=== PATIENT | female | born 2000 | race Caucasian/White ===

== ENCOUNTER → 2024-08-03 | Outpatient (CLI) | payer OTHER, SELFPAY ==
[2024-08-03 10:49] LABS: Hematocrit 40.8 % (37-47); Hemoglobin 13.7 g/dL (12.0-15.0); Mean Corp Hgb Conc 33.6 g/dL (32-36); Mean Corpuscular Hgb 27.8 pg (27.0-32.0); Mean Corpuscular Volume 82.8 fL (81-99); Mean Platelet Vol. 8.7 fl (6.2-12.0); Platelet Count 292 K/mm3 (150-450); RBC Distribution Width CV 12.2 % (11.6-14.6); RBC Distribution Width SD 36.9 fl (35.1-43.9); Red Blood Count 4.93 M/mm3 (4.2-5.4); White Blood Count 8.3 K/mm3 (4.4-11.0)
[2024-08-03 11:04] LABS: Anion Gap 4 (5-15); BUN 5 mg/dL (7-18); BUN/Creat Ratio 8.7 RATIO (10-20); Calcium,Total 9.6 mg/dL (8.5-10.1); Chloride 106 mmol/L (98-107); Creatinine, Serum 0.58 mg/dL (0.55-1.02); EST Glomerular Filtration Rate 137 mL/min (>60); Est Glom Filt Rate - Afr Amer 165 mL/min (>60); Glucose 97 mg/dL (74-106); Potassium 4.5 mmol/L (3.5-5.1); Sodium Level 137 mmol/L (136-145)
== END | disposition home or self-care (01) ==
PROVIDERS: Referring Provider Plastic Surgery; Visit Provider Plastic Surgery
DX: L30.4 Erythema intertrigo (principal); M54.9 Dorsalgia, unspecified; G89.29 Other chronic pain; M25.519 Pain in unspecified shoulder; M54.2 Cervicalgia; N62 Hypertrophy of breast
CPT/HCPCS: 36415; 80048; 85027

== ENCOUNTER → 2024-08-11 | Outpatient (CLI) | payer OTHER, SELFPAY ==
[2024-08-11 12:19] LABS: Absolute Lymphocyte Count 1.69 X10^3/uL (0.83-4.51); Absolute Neutrophil Count 3.6 X10^3/uL (2.0-7.7); Basophil# 0.03 X10^3/uL; Basophil% 0.5 % (0-1); Eosinophil# 0.15 X10^3/uL; Eosinophils% 2.5 % (0-5); Hematocrit 37.6 % (37-47); Hemoglobin 12.8 g/dL (12.0-15.0); Lymphocyte # 1.69 X10^3/ul (0.83-4.51); Lymphocyte % 27.8 % (19-41); Mean Corpuscular Hgb 28.1 pg (27.0-32.0); Mean Corpuscular Volume 82.5 fL (81-99); Mean Platelet Vol. 8.9 fl (6.2-12.0); Monocyte# 0.64 X10^3/uL; Monocyte% 10.5 % (0-10); NRBC Flagged by Analyzer 0 % (0-5); Neutrophil # 3.56 X10^3/uL (2.7-7.7); Neutrophil % 58.4 % (47-70); Platelet Count 334 K/mm3 (150-450); RBC Distribution Width CV 12.1 % (11.6-14.6); RBC Distribution Width SD 36.6 fl (35.1-43.9); Red Blood Count 4.56 M/mm3 (4.2-5.4); White Blood Count 6.1 K/mm3 (4.4-11.0)
[2024-08-11 12:31] LABS: AST(SGOT) 22 U/L (15-37); Alanine Aminotransfer ALT/SGPT 27 U/L (13-56); Alkaline Phosphatase 35 U/L (45-117); Anion Gap 5 (5-15); BUN 8 mg/dL (7-18); BUN/Creat Ratio 13.2 RATIO (10-20); Calcium,Total 9.4 mg/dL (8.5-10.1); Chloride 107 mmol/L (98-107); Creatinine, Serum 0.61 mg/dL (0.55-1.02); EST Glomerular Filtration Rate 129 mL/min (>60); Est Glom Filt Rate - Afr Amer 156 mL/min (>60); Globulin 4.2 g/dL (2.2-4.2); Glucose 90 mg/dL (74-106); Potassium 3.9 mmol/L (3.5-5.1); Protein, Total 8.2 g/dL (6.4-8.2); Sodium Level 137 mmol/L (136-145)
== END | disposition home or self-care (01) ==
LOC: VSLAB 09:18
PROVIDERS: PCP Family Medicine; Visit Provider Family Medicine
DX: Z01.812 Encounter for preprocedural laboratory examination (principal)
CPT/HCPCS: 36415; 80053; 85025

== ENCOUNTER 2024-09-02 06:00 | Day surgery (SDC) | payer OTHER, SELFPAY ==
[2024-09-02] VITALS (11 sets, daily range): BP systolic 107–121; BP diastolic 60–79; PULSE 70–101; RESP 16–18; TEMP 36.4–37.2; O2SAT 97–99; BMI 27.9
[2024-09-02 06:33] LABS: Internal QC Validated? YES +Cl - CLEAR BKGD; Pregnancy, Urine Negative Negative
[2024-09-02] MEDS: 0.9% Normal Saline (1000mL) 1,000 ML 15 ML IV (06:34)
--- NOTE | 2024-09-02 06:36 | PCM.PRE.AN2 ---
ASA Classification* ASA Classification ASA Classification: 2 Assessment & Plan Anesthesia* Anesthesia Assessment Anesthesia Assessment: Discussed sedation and/or anesthesia options, risks, benefits, and alternatives with patient/parents/legal guardian/POA. Questions invited. The patient/parents/legal guardian/POA seems to understand and agrees to proceed with anesthesia plan. Reviewed the physical assessment, medical history, allergy history and patient home medications list prior to surgery/procedure/anesthetic and documented any changes. Performed airway and anesthesia risk assessments. Anesthesia Type Anesthesia Type: General Anesthesia Focused Assessment* Temperature: 97.5 F Pulse Rate: 70 Blood Pressure: 117/79 Respiratory Rate: 16 Pulse Ox: 99 Airway Assessment Mouth opens: >3 cm Mallampati Score: II Focused Labs Anesthesia Preop lab: CBC WBC 6.1 K/mm3 (4.4-11.0) 08/11/24 09:18 RBC 4.56 M/mm3 (4.2-5.4) 08/11/24 09:18 Hgb 12.8 g/dL (12.0-15.0) 08/11/24 09:18 Hct 37.6 % (37-47) 08/11/24 09:18 Plt Count 334 K/mm3 (150-450) 08/11/24 09:18 CHEMISTRY Potassium 3.9 mmol/L (3.5-5.1) 08/11/24 09:18 Sodium 137 mmol/L (136-145) 08/11/24 09:18 BUN 8 mg/dL (7-18) 08/11/24 09:18 Creatinine 0.61 mg/dL (0.55-1.02) 08/11/24 09:18 Glucose 90 mg/dL (74-106) 08/11/24 09:18 COAG Urine Test Negative Negative 09/02/24 06:15 Pre-Assessment Diagnosis/Proposed Procedure Planned Operative Procedure(s): BILAT BREAST REDUCTION Anesthesia History Anesthesia History - cullet crusher: Anesthesia History - cullet crusher Hx Hospitalization No 08/20/24 09:30 Any Problems With Anesthesia No 08/20/24 09:30 Cholinesterase deficiency No 08/20/24 09:30 You/Your Family Experience No 08/20/24 09:30 fever (hyperthermia) with Relationship Recent Exposure to Contagious No 09/02/24 06:27 Disease Does patient have nerve No 08/20/24 09:30 stimulator Patient instructed to have device shut off --Does patient have Pacemaker No 09/02/24 06:27 or ICD? When Was Last Pacemaker Check QUESTION #4 FULL TEXT: You/Your Family Experience fever (hyperthermia) with Anesthesia Last Oral Intake Last Oral intake: Last Oral Intake NPO since 00:00 09/02/24 06:27 Meds taken in AM with sips of water? Meds patient instructed to take am of surgery PONV PONV - cullet crusher: PONV - cullet crusher Female Yes 08/20/24 09:30 HX of Motion Sickness No 08/20/24 09:30 HX of N/V After Surgery No 08/20/24 09:30 Non-Smoker Yes 08/20/24 09:30 Duration of Surgery greater Yes 08/20/24 09:30 than 60 minutes Number of Risk Factors 3 08/20/24 09:30 PONV Score Moderate Risk 08/20/24 09:30 Height & Weight Height & Weight: Anesthesia: Height & Weight Height 5 ft 8 in 09/02/24 06:27 Weight: 83.461 kg 09/02/24 06:27 Body Mass Index (BMI) 27.9 09/02/24 06:27 Respiratory Assessment Respiratory Assessment - cullet crusher: Respiratory Tract Infection Hx - cullet crusher Hx Respiratory Tract Infection No 08/20/24 09:30 STOP Sleep Apnea STOP Sleep Apnea - cullet crusher: STOP Sleep Apnea - cullet crusher Hx Hypertension No 08/20/24 09:30 Hx Sleep Apnea No 08/20/24 09:30 CPAP BIPAP Do you snore loudly (louder No 08/20/24 09:30 than talking or can be heard Do you often feel tired/ No 08/20/24 09:30 fatigued/ sleepy during daytime? Has anyone observed you stop No 08/20/24 09:30 breathing during sleep? STOP Results Negative 08/20/24 09:30 QUESTION #5 FULL TEXT : Do you snore loudly (louder than talking or can be heard through closed doors)? Tobacco Use History Tobacco Use History - cullet crusher: Tobacco Use History - cullet crusher Tobacco Use Smoking Status Never smoker 08/20/24 09:30 Hx Tobacco Use No 08/20/24 09:30 Years Smoking Packs Smoked per Day Smoking Cessation Date was within the last 15 years Hx Smoking Cessation Date Hx Smoking Cessation Counseling Hematologic Medial History Hematologic Hx - cullet crusher: Hematologic Medical Hx - sports health [employer] membership advisors Hx of Blood Transfusion No 08/20/24 09:30 Hx of Transfusion in last 3 No 08/20/24 09:30 Months Date of Last Transfusion (if within last 3 months) Ever experience any problems No 08/20/24 09:30 with transfusion(s)? Specify any problems Hx of Preganancy in last 3 No 08/20/24 09:30 Months Nurse Filling Out Transfusion DSCHRIBER 08/20/24 09:30 & Questions: Date: 08/20/24 08/20/24 09:30 Time: 09:32 08/20/24 09:30 Patient unable to answer at this time (ie. confused, unrespo /Reproduction History /Reproductive History - cullet crusher: /Reproductive Hx- cullet crusher Hx Now No 08/20/24 09:30 Gestational Age (in weeks): EDC: Hx Hx Para Hx Section SAB No 08/20/24 09:30 Active Medications Active Medications: Current Medications Generic Name Dose Route Start Last Admin Trade Name Freq PRN Reason Stop Dose Admin Cefazolin Sodium 2 gm/ N/A 20 mls @ 400 mls/hr 09/02/24 07:30 IV 09/02/24 07:32 PREOP ONE Sodium Chloride 1,000 mls @ 15 mls/hr 09/02/24 06:15 09/02/24 06:34 IV 09/07/24 19:34 15 mls/hr .Q48H IVELISSE Administration Protocol [facility] Medical History Wears glasses Alcohol use Low iron Back pain Blackout Constipation Non-smoker Severe headache Home Medications ?Medication ?Instructions ?Recorded ?Last Taken ?Type riboflavin (vitamin B2) 50 mg 50 mg PO DAILY 08/20/24 Unknown History tablet vitamin B complex 1 cap PO DAILY 08/20/24 Unknown History zinc gluconate 50 mg tablet 50 mg PO DAILY 08/20/24 Unknown History Allergy/AdvReac Type Severity Reaction Status Date / Time No Known Allergies Allergy Verified 09/02/24 06:26 Family History Grandfather Cancer Myocardial infarction Social History Smoking Status: Never smoker alcohol intake: current details: rarely on special occasions substance use type: does not use additional social history: no vaping, no edibles, no asa or ibuprofen Review of Systems (Anesthesia) ROS Narrative System reviewed and no additional complaints, except as documented.
--- NOTE | 2024-09-02 07:28 | PCM.HP.BLA ---
History and Physical Date of Admission: 09/02/24 The patient is examined and there are no changes to the H&P dated 08/11/24. Pt for bilateral breast reduction. She is marked in the pre-op area. Informed consent obtained for bilateral breast reduction. Assessment & Plan Assessment/Plan (1) Chronic back pain: (2) Chronic shoulder pain: (3) Intertrigo: PLAN: Plan Pt for bilateral breast reduction.
[2024-09-02] MEDS: Cefazolin 2 GM in Syringe IV (07:29)
--- NOTE | 2024-09-02 07:30 | BR_PTH ---
PATIENT: RUBÉN RAMOS LOC: [facility] [place] U#:[id number] AGE/SX: 23/F ROOM: RE09/02/[address]: Dr. Krissy Woodruff MD : 2000 BED: DIS: 09/02/2024 SPEC #: [id number] RECD: 09/02/24 13:29 STATUS: LALI ELLIOTT #: [id number] ELICEO: 09/02/24 07:[address]: Krissy Woodruff DEPT: SURGICAL PATHOLOGY RECD BY: Jyothi Carlisle ENTERED: 09/03/24 08:09 SP TYPE: MAMOPLASTY OTHR DR: Mihaela Wan, [facility], DO Tissues: A - Right breast, NOS B - Left breast, NOS C - Skin of breast, NOS Procedures: Surgery Specimen Level IV HEADER OPERATION: Bilateral breast reduction PRE-OP DIAGNOSIS: Chronic back pain, chronic shoulder pain, intertrigo TISSUE SUBMITTED: A- Right breast tissue - 462gm, B- Left breast tissue - 470gm, C- Right breast lesion MICROSCOPIC DIAGNOSIS A. Right breast tissue, 462gm, breast reduction mammoplasty: Fragments of benign breast tissue. Skin - No pathologic diagnosis. B. Left breast tissue, 470gm, breast reduction mammoplasty: Fragments of benign breast tissue. Skin - No pathologic diagnosis. C. Right breast lesion, excisional biopsy: Fibroadenoma. Negative for atypia or malignancy. 09/06/2024 MICROSCOPIC DESCRIPTION Slides are reviewed. GROSS DESCRIPTION A - Received in fixative is one container labeled with the patient's name and designated Right breast tissue - 462gm. The specimen consists of multiple pieces of fibroadipose tissue with a few of the pieces showing rendon-white skin, measuring in aggregate 23.0 x 18.0 x 5.5 cm. No skin lesion is identified. Sections reveal yellow adipose cut surfaces mixed with fibrous areas. No mass lesion is identified. Anatomic Pathologist sections are submitted in six cassettes. Cassette 1 contains the skin piece. B - Received in fixative is one container labeled with the patient's name and designated Left breast tissue - 470gm. The specimen consists of multiple pieces of fibroadipose tissue with a few of the pieces showing rendon-white skin measuring in aggregate 20.0 x 20.0 x 6.0cm. No skin lesion is identified. Sections reveal yellow adipose cut surfaces mixed with scant fibrous areas. No mass lesion is identified. Anatomic Pathologist sections are submitted in six cassettes. Cassette 1 contains the skin piece. C. Received in fixative is one container labeled with the patient's name and designated Right breast lesion. The specimen consists of an irregular rendon-white nodule measuring 1.0 x 1.0 x 1.0cm. This specimen is inked, serially sectioned and reveal rendon solid cut surfaces. The entire specimen is submitted in one cassette. SJ: 09/03/2024 TC:1 CPT:65608g4,12205
[2024-09-02] MEDS: EPINEPHrine Nasal 0.1% 30 ML Bottle TOPICAL (08:10)
[2024-09-02] MEDS: Gentamicin 80 MG/2 ML Vial (08:10)
[2024-09-02] MEDS: Methylene Blue 1% 100 MG/10 ML VIAL (08:10)
[2024-09-02] MEDS: Bupivacaine 0.25% 30 ML Vial (12:52)
--- NOTE | 2024-09-02 13:17 | EX.PCM.DISCH ---
Discharge Instructions Dressing / Incision Additional Dressing/Incision Instructions:: Follow the instructions given in the office. Follow Up Care Please Follow Up With: Krissy Woodruff MD When: Next week Test Results: Test results from this visit will be discussed in further detail at your follow-up appointment, if applicable. Discharge Plan Admission Attending Provider: Krissy Woodruff Primary Care Provider: Mihaela Wan Instructions Print Language: Bruneian Discharge Orders/Prescriptions Prescriptions: No Action zinc gluconate 50 mg tablet 50 mg PO DAILY riboflavin (vitamin B2) 50 mg tablet 50 mg PO DAILY vitamin B complex Capsule 1 cap PO DAILY Referrals / Follow Up: Mihaela Wan, DO [Primary Care Provider] - Disposition Disposition (needs filled in before D/C Order can be placed): Home, Self Care
--- NOTE | 2024-09-02 13:19 | PCM.OPRPT ---
Problems Associated Problem List Diagnoses (1) Intertrigo: (2) Chronic back pain: (3) Chronic shoulder pain: Operative Report (Standard) Operative Information Date of Procedure: 09/02/24 Pre-Operative Diagnosis: Bilateral mammary hypertrophy, chronic neck and back pain Post-Operative Diagnosis: The same Surgery/Procedure Performed: Bilateral breast reduction (right?462 g, left?470 g) graphic art technician: Yes Hair Rooting Machine Operator: Alexandrea Sheriff Tasks completed by assistant women's rowing coach: Closing and Retracting Type of Anesthesia: General RN Documented Start/Stop Times: Operation Date: 09/02/24 07:30 Case Time Into Pre-Op 09/02/24 06:07 Out of Pre-Op 09/02/24 07:28 Anesthesia Start 09/02/24 07:29 Into Room 09/02/24 07:29 Procedure Start 09/02/24 08:10 Procedure End 09/02/24 13:12 Procedure Start Time: 08:10 Procedure Stop Time: 13:12 Select all DRAINS/GRAFTS/IMPLANTS that apply: None Estimated Blood Loss: 75 cc Specimen collected: Yes Description of specimen(s) removed: Bilateral breast tissue Description of surgery: Soraya comes in today for bilateral breast reduction to alleviate chronic neck and back pain. The procedure been thoroughly reviewed with the patient including the expected pre-, intra-, postoperative course. The potential risk and complications of surgery were reviewed which include but are not exclusive of bleeding, infection, pain, numbness, asymmetry, scar tissue, skin necrosis, the need for further surgery, DVT, and even . She is marked in the preop holding area prior to surgery. Informed consent is obtained. The patient is brought to the operating room and placed under general anesthesia in the supine position. Care is taken to pad all pressure points, apply sequential compression stockings, a Varela catheter, and a warming blanket. She is prepped and draped in the usual sterile fashion. We initially began with incising the premarked incisions. Following this, the pedicle is de-epithelialized. The medial and lateral infra aspects of the breast are removed using argon coagulation. Following this, the pedicle is from the upper flap and dissection continued cephalad maintaining the upper flap at least 2 cm in thickness. The pedicle is then trimmed in order to allow to comfortably fit beneath the upper flap. The wound is irrigated with antibiotic solution and checked for hemostasis which is controlled with cautery. Following this, the breast is infolded using silk suture and skin clips. With a satisfactory size and shape noted, we began to close the incisions. Vicryl sutures are initially placed at a few spots along the inframammary crease. Further approximation of the incisions are performed in 3 layers using a STRATAFIX suture. Approximately 5 cm above the inframammary crease, the nipple areola is brought out through an opening. The nipple areola is then tacked in place using nylon sutures. Following this, all incisions are approximated with a running subcuticular strata fix suture. A small amount of Nitropaste was placed on the areola as well as the corners of the T incision. The identical procedure was performed on the opposite side. All tissue was passed off the operative field to be weighed and sent to pathology as separate specimens. 1/4% plain Marcaine is injected along the incisions at the conclusion. The wounds are dressed using Xeroform and fluff gauze and she is placed in a surgery bra. She tolerated the procedure well and was taken to the recovery area in an awakening in stable condition. Needle and sponge counts are correct. Surgical Findings: Hypertrophic breast tissue Complications Complications: No Admit VTE Documentation VTE Mechan Device Prophylaxis: SCD's
--- NOTE | 2024-09-02 13:27 | PCM.POST.ANE ---
Anesthesia: Postop Eval I Current Vital Signs Temperature: 98.9 F Pulse Rate: 100 Blood Pressure: 107/67 Respiratory Rate: 18 Pulse Ox: 99 Assessment Airway patent: Yes Spontaneous unlabored respirations: Yes nausea: No Vomiting: No Anesthesia Complication: No Fluid Hydration Crystalloid volume administer (ml): 1,500 Total IV fluid infused: 1,500 Progress Note Anesthesia document: Postop Eval 1 completed: Yes
--- NOTE | 2024-09-02 16:12 | POSTOPAN2_ITS ---
Anesthesia Postop Eval I Sum Postop Eval Completion status Anesthesia document: Postop Eval 1 completed: Yes Anesthesia Postop Eval I Summary Anesthesia Postop Eval I Summary: Anesthesia Postop Eval I: Assessment Summary Airway patent Yes 09/02/24 13:27 [email or web address] Spontaneous unlabored Yes 09/02/24 13:27 [email or web address] [email or web address] respirations Mental status nausea No 09/02/24 13:27 [email or web address] Vomiting No 09/02/24 13:27 [email or web address] Anesthesia Postop Eval I: Fluid Summary Crystalloid volume administer 1,500 09/02/24 13:27 [email or web address] (ml) Colloids volume administered ( ml) Blood Product volume administered (ml) Total IV fluid infused 1,500 09/02/24 13:27 [email or web address] Anesthesia Postop Eval I: Summary Notes Anesthesia Complication No 09/02/24 13:27 [email or web address] Anesthesia Complication Comment: Post-operative progress note Anesthesia: Postop Eval II Evaluation Mental status: Awake and Calm Pain Level: 3 nausea: No Vomiting: No Complications Anesthesia Complication: No
--- NOTE | 2024-09-02 16:12 | PCM.POSTANE2 ---
Anesthesia Postop Eval I Sum Postop Eval Completion status Anesthesia document: Postop Eval 1 completed: Yes Anesthesia Postop Eval I Summary Anesthesia Postop Eval I Summary: Anesthesia Postop Eval I: Assessment Summary Airway patent Yes 09/02/24 13:27 [email or web address] Spontaneous unlabored Yes 09/02/24 13:27 CLOTH [email or web address] respirations Mental status nausea No 09/02/24 13:27 [email or web address] Vomiting No 09/02/24 13:27 [email or web address] Anesthesia Postop Eval I: Fluid Summary Crystalloid volume administer 1,500 09/02/24 13:27 [email or web address] (ml) Colloids volume administered ( ml) Blood Product volume administered (ml) Total IV fluid infused 1,500 09/02/24 13:27 [email or web address] Anesthesia Postop Eval I: Summary Notes Anesthesia Complication No 09/02/24 13:27 [email or web address] Anesthesia Complication Comment: Post-operative progress note Anesthesia: Postop Eval II Evaluation Mental status: Awake and Calm Pain Level: 3 nausea: No Vomiting: No Complications Anesthesia Complication: No
== END 2024-09-02 16:54 | disposition home or self-care (01) ==
LOC: SDC 06:01 → AC 06:03
PROVIDERS: Anesthesiology; PCP Family Medicine; Referring Provider Plastic Surgery; Visit Provider Plastic Surgery
PROC: 0H0U0ZZ Alteration of Left Breast, Open Approach (ICD-10-PCS; CPT 19318; principal; 2024-09-02 07:15)
DX: N62 Hypertrophy of breast (principal); D24.1 Benign neoplasm of right breast; L30.4 Erythema intertrigo; M54.2 Cervicalgia; M25.519 Pain in unspecified shoulder; G89.29 Other chronic pain
CPT/HCPCS: 19318; 00402; 81025; 88305; J2405